=== PATIENT | male | born 1985 | race Caucasian/White ===

== ENCOUNTER 2023-07-30 05:37 | Emergency (ER) | payer OTHER ==
[~2023-07-30] VITALS: Ht 157.5 cm; Wt 93.0 kg
[2023-07-30 05:58] VITALS: BP_SYST 118; PULSE 75; RESP 20; TEMP 97.6; O2SAT 98
[2023-07-30 07:00] VITALS: BP_SYST 118; PULSE 75; RESP 20; TEMP 97.6; O2SAT 98
[2023-07-30] MEDS ORDERED: IBUP-1971 PO (07:10)
[2023-07-30] MEDS ORDERED: HYDR-3917 PO (07:10)
== END 2023-07-30 07:50 | disposition home or self-care (01) ==
LOC: SED 05:37
DX: S60.222A Contusion of left hand, initial encounter (principal); W22.8XXA Striking against or struck by other objects, initial encounter; Y93.89 Activity, other specified; Y92.89 Other specified places as the place of occurrence of the external cause; Y99.8 Other external cause status
CPT/HCPCS: 99283